=== PATIENT | female | born 1950 | race Caucasian/White ===

== ENCOUNTER 2017-07-10 15:25 | Emergency (ER) | payer MEDICARE ==
--- NOTE | 2017-07-10 15:41 | ED Physician Documentation ---
PD HPI UPPER EXT INJURY - Stated complaint Stated Complaint: L ARM/WRIST PX - Chief complaint Chief Complaint: Ext Problem - History obtained from History obtained from: Patient, Family (spouse) - History of Present Illness Location: Left, Forearm, Wrist Type of injury: Fall (she slid on wet spot getting into boat and fell, trying to catch her self with left outstretched arm. Pain at wirst.) Where injury occurred: Other (boat dock) Timing - onset: Today ([employer] [employer]) Timing - details: Abrupt onset, Still present Improved by: Rest, Ice Worsened by: Moving, Palpating Associated symptoms: Numbness (she feels some tingling in index/middle fingers mostly but some all over hand.), Swelling. No: Weakness Similar symptoms before: Has not had sx before Recently seen: Not recently seen Review of Systems Constitutional: denies: Fever, Chills Nose: denies: Rhinorrhea / runny nose Throat: denies: Sore throat Respiratory: denies: Dyspnea, Cough PD PAST MEDICAL HISTORY - Past Medical History Cardiovascular: High cholesterol - Past Surgical History Past Surgical History: No - Present Medications Home Medications: Ambulatory Orders Medication Instructions Recorded Confirmed Simvastatin 10 mg PO DAILY 07/10/17 07/10/17 - Allergies Allergies/Adverse Reactions: Allergies Allergy/AdvReac Type Severity Reaction Status Date / Time Sulfa (Sulfonamide Allergy Hives Verified 07/10/17 15:36 Antibiotics) - Social History Does the pt smoke?: No Smoking Status: Never smoker Does the pt drink ETOH?: No Does the pt have substance abuse?: No - Immunizations Immunizations are current?: Yes PD ED PE NORMAL - Vitals Vital signs reviewed: Yes - General General: Alert and oriented X 3, No acute distress, Well developed/nourished - HEENT HEENT: Atraumatic - Neck Neck: Supple, no meningeal sign, No bony TTP - Cardiac Cardiac: RRR, No murmur - Respiratory Respiratory: Clear bilaterally - Derm Derm: Normal color, Warm and dry - Extremities Extremities: Other (left wrist with tenderness and some swelling over dorsal proximal wrist. No gross deformity. ) - Neuro Neuro: Alert and oriented X 3, No motor deficit, No sensory deficit - Psych Psych: Normal affect Results - Vitals Vitals: Oxygen O2 Source Room air - Rads (name of study) left wrist Radiology: Prelim report reviewed (distal radius fracture, comminuted with some angulation, but acceptable range at this time) Procedures - Laceration (location) left wrist Length in cm: 0 (mistake, no laceration.) - Splint (location) left wrist Splint applied by: Tech Type of splint: Fiberglass, Sugar tong Other: Patient tolerated well, No complications, Neurovascular intact, Good alignment, Sling provided Departure - Departure Disposition: 01 Home, Self Care Clinical Impression: Fall from slip, trip, or stumble Qualifiers: Encounter type: initial encounter Qualified Code(s): W01.0XXA - Fall on same level from slipping, tripping and stumbling without subsequent striking against object, initial encounter Distal radius fracture, left Qualifiers: Encounter type: initial encounter Fracture type: closed Fracture morphology: Colles' Qualified Code(s): S52.532A - Colles' fracture of left radius, initial encounter for closed fracture Condition: Stable Record reviewed to determine appropriate education?: Yes Instructions: ED Fx Forearm Radius Ulna No Redu Requ Follow-Up: Samm Ross MD [Provider Admit Priv/Credential] - Comments: Keep the splint on and keep it dry. Sling for comfort and to help keep it elevated. Ice and elevate your wrist often the next few days. Follow-up with orthopedics later in the week, call tomorrow for an appointment. Tylenol or ibuprofen if needed for pain. Discharge Date/Time: 07/10/17 16:53
[2017-07-10 16:28] VITALS: BP 150/87
--- NOTE | 2017-07-10 16:34 | XRAY Preliminary Report ---
Exam: XR Wrist 3 View LT IMPRESSION: Distal radius fracture with 5 degrees of angulation. [facility] SITE ID: [id number]
--- NOTE | 2017-07-10 16:36 | XRAY Report ---
EXAM: LEFT WRIST RADIOGRAPHY EXAM DATE: 07/10/2017 04:06 PM. CLINICAL HISTORY: Left wrist injury, deformed. COMPARISON: None. TECHNIQUE: 3 views. FINDINGS: Bones: There is a fracture of the distal radius. There is approximately 5 degrees of angulation. No c arpal bone fracture. Joints: Normal. No subluxations. Soft Tissues: There is soft tissue swelling of the distal forearm. IMPRESSION: Distal radius fracture with 5 degrees of angulation. [facility] Referring Provider Line: [phone] SITE ID: [id number]
== END 2017-07-10 16:53 | disposition home or self-care (01) ==
LOC: ED 15:25
DX: S52.532A Colles' fracture of left radius, initial encounter for closed fracture (principal); V93.39XA Fall on board unspecified watercraft, initial encounter; Y93.89 Activity, other specified; E78.00 Pure hypercholesterolemia, unspecified
CPT/HCPCS: 29125; 99283

== ENCOUNTER 2024-06-15 08:00 | Outpatient (CLI) | payer MEDICARE, OTHER ==
--- NOTE | 2024-06-15 11:02 | XRAY Report ---
PROCEDURE: Ankle 3+V RT INDICATIONS: RIGHT ANKLE SPRAIN TECHNIQUE: 3 views of the ankle were acquired. COMPARISON: None. FINDINGS: Bones: No fractures or dislocations. Ankle mortise is normally aligned. No suspicious bony lesions . Soft tissues: No tibiotalar joint effusion. Achilles tendon appears normal. IMPRESSION: No acute bony abnormality. Intact ankle mortise. Reviewed by: Rao Cisse MD on 06/15/2024 11:00 AM PDT Approved by: Rao Cisse MD on 06/15/2024 11:00 AM PDT Station ID: [id number]
--- NOTE | 2024-06-15 11:02 | XRAY Report ---
PROCEDURE: Foot 3+V RT INDICATIONS: RIGHT FOOT SPRAIN TECHNIQUE: 3 views of the foot were acquired. COMPARISON: None. FINDINGS: Bones: Acute oblique fracture through mid shaft of fourth metatarsal bone is seen with slight dorsal and medial displacement at fracture site. No suspicious bony lesions. Soft tissues: No tibiotalar joint effusion. Achilles tendon appears normal. IMPRESSION: Slightly displaced oblique fracture involving fourth metatarsal shaft. Reviewed by: Rao Cisse MD on 06/15/2024 11:01 AM PDT Approved by: Rao Cisse MD on 06/15/2024 11:01 AM PDT Station ID: [id number]
== END 2024-06-15 23:59 | disposition home or self-care (01) ==
LOC: DI.S 08:00
PROVIDERS: ATTEND Physician Assistant Medical
DX: S92.341A Displaced fracture of fourth metatarsal bone, right foot, initial encounter for closed fracture (principal)